=== PATIENT | male | born 1980 | race Caucasian/White ===

== ENCOUNTER 2022-07-24 17:49 | Emergency (ER) | payer BC, SELFPAY ==
--- NOTE | ~2022-07-24 | XR_ITS ---
XR chest 1V portable DATE: 07/24/2022 19:41 INDICATION: Fever, headache, dizziness, sore throat, body aches for several days TECHNIQUE: Portable upright AP chest on 07/20/2022 at 1935 hours COMPARISON: None FINDINGS: Normal heart size. No hilar or mediastinal enlargement. No pulmonary infiltrate or consolid ation, pleural effusion or pulmonary vascular congestion or pneumothorax. IMPRESSION: Negative Reviewed, dictated and finalized at location A. IMPRESSION: Negative
[2022-07-24 18:02] VITALS: PULSE 113; RESP 20; TEMP 36.8; O2SAT 98
--- NOTE | 2022-07-24 19:22 | ED.FEVER ---
HPI - Fever General Chief Complaint: Fever Stated Complaint: fever - exposure to covid Time Seen by Provider: 07/24/22 18:44 Source: patient Mode of arrival: ambulatory Limitations: no limitations History of Present Illness HPI Narrative: This is a 41 year old male that presents to the ER for cold symptoms present since yesterday. Reports fever, myalgias, sore throat and congestion. He is COVID vaccinated. His tested positive for COVID today. Reports feeling weak and dizzy. Denies cough or shortness of breath. Review of Systems Review of Systems: CONSTITUTIONAL: Reports fever ENT: Reports congestion, sore throat CARDIOVASCULAR: Denies chest pain RESPIRATORY: Denies cough or dyspnea. All systems reviewed & are unremarkable except as noted in HPI and below PMFSH Past Medical History Medical History (Updated 07/24/22 @ 21:17 by Deepti Jett PA-C) No active medical problems Social History Social History (Updated 07/24/22 @ 19:24 by Deepti Jett PA-C) Smoking status: Never smoker Alcohol intake: current Substance use: never Exam Narrative: GENERAL: Well-appearing, well-nourished, and in no acute distress. HEAD: Normocephalic, atraumatic. EYES: EOMI. ENT: Nares clear, no rhinorrhea or epistaxis. Mucous membranes moist. Oropharynx without tonsillar hypertrophy exudate or other lesions. Bilateral TMs pearly esteban non-bulging NECK: Supple. No adenopathy or masses. CHEST: Clear to auscultation. No respiratory distress. No wheezes rales or rhonchi HEART: Regular rate and rhythm. No murmur heard. Normal peripheral pulses. EXTREMITIES: Normal range of motion. No edema. SKIN: Warm, dry, no rash. NEURO: No focal deficits. Alert and oriented x3. PSYCH: Normal mood and affect Course Vital Signs Vital signs: Vital Signs Temperature 98.3 F 07/24/22 18:02 Pulse Rate 113 H 07/24/22 18:02 Respiratory Rate 20 07/24/22 18:02 Pulse Oximetry 98 07/24/22 18:02 Oxygen Delivery Room Air 07/24/22 18:02 Temperature 100.1 F H 07/24/22 21:30 Pulse Rate 114 H 07/24/22 21:31 Respiratory Rate 19 09/24/22 21:31 Blood Pressure 150/88 H 07/24/22 21:31 Pulse Oximetry 100 07/24/22 21:31 Oxygen Delivery Room Air 07/24/22 18:02 MDM - Fever MDM Narrative Medical decision making narrative: Patient presents to the emergency department for cold symptoms present since yesterday. He is afebrile and nontoxic-appearing. Mildly tachycardic upon arrival. Patient refused any IV fluids to help normalize heart rate. He is tolerating oral intake. Chest x-ray without acute cardiopulmonary abnormality. EKG shows sinus tachycardia. His COVID swab is positive. Patient was educated on continued care of viral infection. He does wish to be prescribed Paxlovid. Patient was able to show me outside blood work as he refused any blood draw tonight. This showed normal kidney function. He is to follow-up with primary care doctor. He was given warnings to return to the ER Lab Data Attestation: I reviewed the patient's lab results. Labs: Lab Results 07/24/22 Range/Units 18:58 SARS-CoV-2 RNA (RT-PCR) Positive A Imaging Data Radiologist's impression: ITS Impressions Chest X-Ray 07/24/22 19:48 IMPRESSION: Negative ECG Data EKG #1: ECG completion date: 07/24/22 EKG Interpretation: tachycardia, sinus rhythm, no ST changes and normal QT Critical Care Time Critical Care Time Critical Care Time: No Discharge Plan Discharge Clinical Impression: COVID-19 Patient Disposition: Home, Self-Care Condition: Stable Instructions: COVID-19 (Coronavirus Disease 2019) (ED), How to Recover from COVID-19 at Home (ED) Additional Instructions: Return to the ER if you experience fever, chest pain, shortness of breath, abdominal pain with nausea and vomiting, you are unable to keep down liquids or solids, or any other symptoms that are concerning to you Remain
--- NOTE | 2022-07-24 19:28 | ECG_ITS ---
Measurements Intervals [place] Rate: 110 P: 58 TX: 172 QRS: 97 QRSD: 96 T: -8 QT: 311 QTc: 421 Interpretive Statements SINUS TACHYCARDIA RIGHT AXIS DEVIATION DELAYED PRECORDIAL R/S TRANSITION BORDERLINE ST-T WAVE ABNORMALITY- INFERIOR LEADS ABNORMAL ECG NO PREVIOUS ECG AVAILABLE FOR COMPARISON Electronically Signed On 07-24-2022 21:38:29 CDT by Remgiio Avina D.O.
[2022-07-24 19:41] LABS: SARS-CoV-2 RNA PCR Positive
--- NOTE | 2022-07-24 20:39 | PC.NURSE ---
pt asking not to be stuck for IV placement, d.t not having butterfly iv's pt says, too painful with the other one's!!
[2022-07-24 21:13] VITALS: PULSE 112; RESP 11; O2SAT 97
[2022-07-24 21:15] VITALS: PULSE 115; RESP 25
[2022-07-24 21:16] VITALS: BP 144/83; PULSE 112; RESP 13
[2022-07-24 21:30] VITALS: BP 150/88; PULSE 112; RESP 18; TEMP 37.8; O2SAT 99
[2022-07-24 21:31] VITALS: BP 150/88; PULSE 114; RESP 19; O2SAT 100
== END 2022-07-24 21:40 | disposition home or self-care (01) ==
PROVIDERS: Emergency Provider Emergency Medicine
DX: U07.1 COVID-19 (principal); R00.0 Tachycardia, unspecified; R94.31 Abnormal electrocardiogram [ECG] [EKG]
CPT/HCPCS: 71045; 93005; 99284; C9803; U0003; U0005